=== PATIENT | female | born 1950 | race Caucasian/White ===

== ENCOUNTER → 2018-02-23 | Outpatient (CLI) | payer MEDICARE, OTHER ==
[2018-02-23 15:39] LABS: T4, Free (Free Thyroxine) 1.3 ng/dL (0.80-1.80)
== END ==
LOC: LABWHC1 10:20
PROVIDERS: ATTEND Internal Medicine Endocrinology, Diabetes & Metabolism
DX: E04.1 Nontoxic single thyroid nodule (principal)
CPT/HCPCS: 36415; 84439; 84443

== ENCOUNTER → 2018-03-01 | Outpatient (CLI) | payer MEDICARE, OTHER ==
--- NOTE | 2018-03-01 12:13 | US ---
EXAMINATION TYPE: US thyroid st tissue head/neck DATE OF EXAM: 03/01/2018 COMPARISON: NONE CLINICAL HISTORY: E04.1 Nontoxic single thyroid nodule; large palpable left neck noted x 6 months GLAND SIZE: Right Lobe: 4.8 x 1.8 x 1.1 cm Overall Parenchyma: homogenous Left Lobe: 6.4 x 3.6 x 3.2 cm Overall Parenchyma: heterogeneous Isthmus Thickness: 0.3 cm NODULES RIGHT: # of nodules measured on right: 1 largest of multiple small nodules/ cysts 1. 0.3 X 0.3 x 0.2 cm hypoechoic mixed nodule at the upper pole with well-defined margins. This no dule is wider than tall and shows no intranodular vascularity. LEFT: # of nodules measured on left: 1 1. 4.2 X 3.2 x 3.0 cm hypoechoic mixed nodule at the mid and lower pole with irregular margins. Th is nodule is wider than tall and shows no intranodular vascularity. ISTHMUS: # of nodules measured in the isthmus: 0 Bilateral neck scanned: left upper neck normal appearing node is seen. IMPRESSION: Complex nodule left thyroid lobe requires tissue diagnosis.
== END | disposition home or self-care (01) ==
LOC: RADUSWWP 10:23
PROVIDERS: ATTEND Internal Medicine Endocrinology, Diabetes & Metabolism
DX: E04.1 Nontoxic single thyroid nodule (principal)
CPT/HCPCS: 76536

== ENCOUNTER → 2021-09-15 | Outpatient (CLI) | payer MEDICARE, OTHER ==
[2021-09-15 14:41] LABS: T4, Free (Free Thyroxine) 1.55 ng/dL (0.800-1.800)
== END | disposition home or self-care (01) ==
LOC: LABWHC1 10:18
PROVIDERS: ATTEND Internal Medicine Endocrinology, Diabetes & Metabolism
DX: E04.2 Nontoxic multinodular goiter (principal)
CPT/HCPCS: 36415; 84439; 84443

== ENCOUNTER → 2021-09-29 | Outpatient (CLI) | payer MEDICARE, OTHER ==
--- NOTE | 2021-09-30 07:00 | US ---
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 Hx thyroid nodule; left thyroid bx in 2018; cyst ic nodule drained in 2018. GLAND SIZE: Right Lobe: 4.5 x 1.0 x 1.6 cm Overall Parenchyma: homogenous Left Lobe: 5.7 x 3.4 x 4.0 cm Overall Parenchyma: homogeneous Isthmus Thickness: 0.35 cm NODULES RIGHT: # of nodules measured on right: 0 LEFT: # of nodules measured on left: 1 1. 3.8 X 3.1 x 3.8 cm, mid mid, cystic or almost completely cystic, anechoic nodule with some debri , which is wider than tall, with smooth margins, without echogenic foci. Prior size: 4.2 x 3.2 x 3.0 cm ISTHMUS: # of nodules measured in the isthmus: 0 Bilateral neck scanned, no evidence of lymphadenopathy. IMPRESSION: Thyromegaly with persistent 4.2 cm mixed cystic lesion similar to the prior exam. 2017 ACR TI-RADS LEVEL: TR-RADS 2 - Not Suspicious: No FNA *Highest TI-RADS level nodule reported
== END | disposition home or self-care (01) ==
LOC: RADUSWWP 16:53
PROVIDERS: ATTEND Internal Medicine Endocrinology, Diabetes & Metabolism
DX: E01.0 Iodine-deficiency related diffuse (endemic) goiter (principal)
CPT/HCPCS: 76536